=== PATIENT | female | born 1975 | race Caucasian/White ===

== ENCOUNTER 2022-06-21 20:58 | Emergency (ER) | payer OTHER, SELFPAY ==
[2022-06-21 21:06] VITALS: BP 116/82; PULSE 74; RESP 16; TEMP 36.2; O2SAT 100
--- NOTE | 2022-06-21 21:14 | CRLHL7_ITS ---
For Patients: As a result of the Century Cures Act, medical imaging exams and procedure reports are released immediately into your electronic medical record. You may view this report before your referring provider. If you have questions, please contact your health care provider. Indication: Tripped on step. Technique: Right ankle 3 views. Comparison: None. Findings: Bones: Acute transverse nondisplaced fracture of distal fibula at the level of the ankle mortise joint. Nondisplaced medial malleolar fracture. The posterior malleolus appears intact. Joint spaces: Tiny calcification within the lateral clear space of the ankle mortise joint. The ankle mortise joint is otherwise congruent. A joint effusion is likely present. Soft tissues: Soft tissue swelling about the ankle, particularly anteriorly and laterally. Impression: Acute nondisplaced fractures of the distal fibula at the ankle mortise joint and medial malleolus. No definite posterior malleolar fracture. Congruent ankle mortise joint. Tiny calcification in the lateral clear space may represent an intra-articular body. Unclear donor site and chronicity. Dictated by German Figueroa MD @ 06/21/2022 9:42:14 PM (Electronically Signed)
--- NOTE | 2022-06-21 21:15 | ED.LOWEXIN ---
HPI - Extremity Injury (Lower) General Chief Complaint: Extremity Pain/Injury, Lower Stated Complaint: Ankle/Foot Injury Time Seen by Provider: 06/21/22 21:11 History of Present Illness HPI Narrative: This 47-year-old female comes in with an injury to her right ankle. She was ambulating down some steps and misstepped on the last step and twisted this ankle. She did not have any other injury. She has pain and swelling over the lateral malleolus of the right ankle. She did attempt to put a little bit a weight on it but stopped because of pain. Related Data Home Medications Medication Instructions Recorded Confirmed albuterol sulfate 90 mcg/actuation 2 inhalation PRN 05/01/22 05/01/22 breath activated powder inhaler citalopram 20 mg tablet 20 mg PO DAILY 05/01/22 05/01/22 Previous Rx's Medication Instructions Recorded ondansetron 8 mg disintegrating 8 mg PO Q8H #30 tabs 05/01/22 tablet scopolamine base 1 mg over 3 days 1 patch transdermal Q72H PRN 05/01/22 transdermal patch nausea and vomiting #10 ea Crutches- Adult #1 ea 06/21/22 Allergies Allergy/AdvReac Type Severity Reaction Status Date / Time No Known Drug Allergy Allergy Uncoded 05/01/22 15:46 Review of Systems Status of ROS: Reports: 10 or more systems reviewed and unremarkable except as noted in History and below Narrative: Constitutional: No fevers, no weight gain or loss. Eyes: No discharge. No vision changes. HENT: No congestion, no sore throat, no ear pain. Cardiovascular: No chest pain, no palpitations. Respiratory: No shortness of breath, no wheezes, no cough. Gastrointestinal: No abdominal pain, no vomiting, no diarrhea. Genitourinary: No dysuria, no hematuria. Musculoskeletal: Right ankle injury as described above. Skin: No rashes, no pruritis. Neurological: No dizziness, weakness, sensory change, speech change. Endo/Heme/Allergies: No bruising or bleeding. No polydipsia. Pysch: no suicidality, no anxiety, no insomnia. All other systems reviewed and are negative. PFSH PFSH Social History Smoking Status: Never smoker How often do you have a drink containing alcohol: monthly or less AUDIT-C Alcohol total score: 1 Non-prescribed substance use: denies use Exam Narrative: Exam Narrative: Constitutional: Well-developed, well-nourished, no acute distress. HEENT: Normocephalic, atraumatic. Neck: Normal range of motion. Nontender. Supple. Heart: Regular. No murmurs. Normal rate. Intact distal pulses. Lungs: Clear to auscultation. No chest discomfort. No wheezes, rhonchi, or rales. Abdomen: Normal bowel sounds. Nontender. No rebound tenderness. Genitalia: Deferred. Back: No midline tenderness. Normal range of motion. Extremities: Swelling over the lateral malleolus of the right ankle. No tenderness when palpating over the medial malleolus. There is no joint effusion. Skin: Intact. No rash. Warm. No erythema or pallor. Neurologic: No altered sensation. No weakness. Alert and oriented. Psychiatric: No suicidality. No anxiety or depression. No insomnia. Nursing notes and vitals signs are reviewed. Const: Vital Signs, click to edit/add: Vital Signs - 24 hr 06/21/22 21:06 Temperature 97.2 F L Pulse Rate [Left P ulse Oximeter] 74 Respiratory Rate 16 Blood Pressure [Ri ght Upper Arm] 116/82 Pulse Oximetry 100 Oxygen Delivery Me thod Room Air Course Vital Signs Vital signs: Initial Vital Signs Temperature 97.2 F L 06/21/22 21:06 Temperature Source Temporal Artery Scan 06/21/22 21:06 Pulse Rate 74 06/21/22 21:06 Pulse Rhythm 06/21/22 21:06 Respiratory Rate 16 06/21/22 21:06 Blood Pressure 116/82 06/21/22 21:06 Blood Pressure Mean 93 06/21/22 21:06 Blood Pressure Position Semi-Fowlers 06/21/22 21:06 Pulse Oximetry 100 06/21/22 21:06 Oxygen Delivery Method 06/21/22 21:06 Vital Signs Temperature 97.2 F L 06/21/22 21:06 Pulse Rate 74 06/21/22 21:06 Respiratory Rate 16 06/21/22 21:06 Blood Pressure 116/82 06/21/22 21:06 Pulse Oximetry 100 06/21/22 21:06 Oxygen Delivery Method 06/21/22 21:06 Temperature 97.2 F L 06/21/22 21:06 Pulse Rate 74 06/21/22 21:06 Respiratory Rate 16 06/21/22 21:06 Blood Pressure 116/82 06/21/22 21:06 Pulse Oximetry 100 06/21/22 21:06 Oxygen Delivery Method 06/21/22 21:06 MDM - Extremity Injury (Lower) MDM Narrative Medical decision making narrative: This patient comes in with an ankle injury and x-ray images show a nondisplaced fractures of both the lateral and medial malleoli. The position of the ankle mortise is very good but compromise with these fractures. Patient was placed in an Ortho Glass splint and arrangements are made for orthopedic clinic follow-up. She received crutches for ambulation and is instructed not to bear any weight on this leg. Imaging Data XR R Ankle: Radiologist's impression: Acute nondisplaced fractures of the distal fibula at the ankle mortise joint and medial malleolus. No definite posterior malleolar fracture. Congruent ankle mortise joint. Tiny calcification in the lateral clear space may represent an intra-articular body. Unclear donor site and chronicity. Discharge Plan Discharge Clinical Impression: Ankle fracture Patient Disposition: Home w/ Parent or Adult Condition: Unchanged Additional Instructions: Wear splint and use crutches for ambulating. No weight-bearing on the right leg. Follow-up with orthopedic clinic as scheduled. Prescriptions: New (DME) Crutches- Adult Misc See Rx Instructions .ROUTE .MEDSUPPLY Qty: 1 0RF Rx Instructions: As directed No Action albuterol sulfate 90 mcg/actuation aerosol powdr breath activated 2 inhalation PRN citalopram 20 mg tablet 20 mg PO DAILY scopolamine base 1 mg over 3 days patch 3 day 1 patch transdermal Q72H PRN (Reason: nausea and vomiting) Qty: 10 0RF ondansetron 8 mg tablet,disintegrating 8 mg PO Q8H Qty: 30 0RF Follow Up/Referrals: Kamille Bauer DO [Primary Care Provider] - Stand Alone Forms: [facility] Info Instructions
--- NOTE | 2022-06-21 22:13 | ED.NURSE ---
crutch teaching done with return demo.
== END 2022-06-21 22:15 | disposition home or self-care (01) ==
PROVIDERS: Emergency Provider Emergency Medicine Emergency Medical Services; PCP Family Medicine
DX: S82.831A Other fracture of upper and lower end of right fibula, initial encounter for closed fracture (principal)
CPT/HCPCS: 29515; 73610; 99283; 99284

== ENCOUNTER 2022-06-26 10:23 | Outpatient (CLI) | payer OTHER, SELFPAY ==
[2022-06-26 14:29] LABS: Vitamin D 25 Hydroxy* 46 ng/mL (30-80)
[2022-06-26 14:40] LABS: Chloride* 108 mmol/L (96-114); Sodium* 139 mmol/L (135-149)
[2022-06-26 14:41] LABS: Potassium* 4.3 mmol/L (3.6-5.1)
[2022-06-26 14:43] LABS: Carbon Dioxide* 25 mmol/L (20-32); Creatinine* 0.7 mg/dL (0.5-1.5); Estimated Glomerular Filt Rate 109 ml/min
[2022-06-26 14:44] LABS: Blood Urea Nitrogen* 16 mg/dL (5-24); Calcium* 9.2 mg/dL (8.4-10.6); Glucose* 71 mg/dL (60-115)
== END 2022-06-26 10:24 | disposition home or self-care (01) ==
PROVIDERS: PCP Family Medicine; Visit Provider Family Medicine
DX: Z01.818 Encounter for other preprocedural examination (principal); S82.899A Other fracture of unspecified lower leg, initial encounter for closed fracture
CPT/HCPCS: 80048; 82306

== ENCOUNTER 2023-11-02 10:05 | Outpatient (CLI) | payer OTHER, SELFPAY ==
--- NOTE | 2023-11-02 10:15 | CRLHL7_ITS ---
For Patients: As a result of the Century Cures Act, medical imaging exams and procedure reports are released immediately into your electronic medical record. You may view this report before your referring provider. If you have questions, please contact your health care provider. BILATERAL SCREENING MAMMOGRAM WITH COMPUTER-AIDED DETECTION AND TOMOSYNTHESIS TECHNIQUE: CC and MLO views were obtained. These mammographic images have been obtained using full-field digital technique. These mammographic images were interpreted with the benefit of computer-aided detection. Breast Tomosynthesis was used in this interpretation. COMPARISON FILM: 10/27/22, 06/27/21, 07/09/20. FINDINGS: The breasts are heterogeneously dense, which may obscure small masses. IMPRESSION: There is no radiographic evidence for malignancy. ASSESSMENT: BI-RADS Category 2: Benign RECOMMENDATION: Routine screening mammogram in 1 year. A lay language report of this examination will be provided to the patient. Ko Golden M.D. Diagnostic Radiologist [email or web address] SP/Dictated by: Ko Golden MD @ 11/05/2023 12:06:00 PM (Electronically Signed)
== END 2023-11-02 10:06 | disposition home or self-care (01) ==
LOC: MAMMO 10:06
PROVIDERS: PCP Family Medicine; Visit Provider Registered Nurse
DX: Z12.31 Encounter for screening mammogram for malignant neoplasm of breast (principal); R92.2 Inconclusive mammogram
CPT/HCPCS: 77063; 77067

== ENCOUNTER 2024-04-07 08:45 | Outpatient (CLI) | payer OTHER, SELFPAY ==
--- NOTE | 2024-04-07 09:22 | W.ANESCHARGE ---
Anesthesia Charges Start Date/Time Anesthesia Start Date: 04/07/24 Anesthesia Start Time: 09:37 Stop Date/Time Anesthesia Stop Date: 04/07/24 Anesthesia Stop Time: 10:00
--- NOTE | 2024-04-07 09:51 | W.ANESCHARGE ---
Anesthesia Charges Start Date/Time Anesthesia Start Date: 04/07/24 Anesthesia Start Time: 09:37 Stop Date/Time Anesthesia Stop Date: 04/07/24 Anesthesia Stop Time: 10:00
== END 2024-04-07 08:46 | disposition home or self-care (01) ==
LOC: OP CLINIC 08:46
PROVIDERS: Visit Provider Internal Medicine
DX: Z12.11 Encounter for screening for malignant neoplasm of colon (principal); K57.30 Diverticulosis of large intestine without perforation or abscess without bleeding
CPT/HCPCS: 00812; 45378; J2704

== ENCOUNTER 2024-11-14 11:16 | Outpatient (CLI) | payer OTHER, SELFPAY ==
--- NOTE | 2024-11-14 11:30 | CRLHL7_ITS ---
For Patients: As a result of the Century Cures Act, medical imaging exams and procedure reports are released immediately into your electronic medical record. You may view this report before your referring provider. If you have questions, please contact your health care provider. INDICATION: BILATERAL SCREENING MAMMOGRAM, ASYMPTOMATIC 49 Y/O FEMALE COMPARISON: 11/02/2023, 10/27/2022, 06/27/2021 TECHNIQUE: Digital mammogram in CC and MLO projections including computer-aided detection (CAD) and tomosynthesis. BREAST COMPOSITION: The breasts are heterogeneously dense, which may obscure small masses. FINDINGS: No suspicious findings. ASSESSMENT: BI-RADS 1 Negative RECOMMENDATION: Annual screening mammogram. A lay language report of this examination will be provided to the patient. Dictated by: Ko Golden MD @ 11/14/2024 12:16:09 (Electronically Signed)
== END 2024-11-14 11:17 | disposition home or self-care (01) ==
LOC: MAMMO 11:16
PROVIDERS: Visit Provider Registered Nurse
DX: Z12.31 Encounter for screening mammogram for malignant neoplasm of breast (principal); R92.333 Mammographic heterogeneous density, bilateral breasts
CPT/HCPCS: 77063; 77067